=== PATIENT | male | born 1980 | race Caucasian/White ===

== ENCOUNTER 2025-06-21 06:28 | Day surgery (SDC) | payer BC, SELFPAY ==
[2025-06-17 11:29] VITALS: BMI 30.2
--- NOTE | 2025-06-20 07:00 | EKG_ITS ---
[facility] Test Date: 2025-06-20 Pat Name: NICOLLE REYNA Department: Room: - Gender: Male [employer] Counselor: EILEEN : 1980 Requested By: Seda Bernardo Order Number: [id number] Reading MD: Seda Bernardo Measurements Intervals [place] Rate: 60 P: 6 MA: 171 QRS: 23 QRSD: 92 T: 35 QT: 360 QTc: 361 Interpretive Statements SINUS RHYTHM EARLY REPOLARIZATION [ST ELEVATION WITH NORMALLY INFLECTED T WAVE] No previous ECG available for comparison /[id number]
[2025-06-20 10:26] LABS: Basophils # (Auto) 0.1 Thou/mm3 (0.0-0.2); Basophils % (Auto) 1 % (0-2.5); Eosinophils # (Auto) 0.2 Thou/mm3 (0.0-0.5); Eosinophils % (Auto) 2 % (0-10); Hematocrit 47.6 % (41.0-53.0); Hemoglobin 16.0 g/dL (13.5-16.0); Immature Granulocytes Auto 0.03 Thou/mm3 (0.00-0.00); Lymphocytes # (Auto) 2.4 Thou/mm3 (1.0-4.8); Lymphocytes % (Auto) 32 % (10-50); Mean Corpuscular HGB Conc 33.6 g/dl (31.0-37.0); Mean Corpuscular Hemoglobin 30.0 pg (25.0-35.0); Mean Corpuscular Volume 89 fL (80-100); Monocytes # (Auto) 0.6 Thou/mm3 (0.0-0.8); Monocytes % (Auto) 8 % (0-12); Neutrophils # (Auto) 4.2 Thou/mm3 (1.8-7.7); Neutrophils % (Auto) 57 % (37-80); Nucleated Red Blood Cell # 0.00 Thou/mm3 (0.00-0.00); Nucleated Red Blood Cell % 0 /100 WBC (0); Platelet Count 313 Thou/mm3 (140-440); RDW Standard Deviation 43.2 fL (35.1-43.9); Red Blood Count 5.34 Miln/mm3 (4.50-5.90); White Blood Count 7.3 Thou/mm3 (3.8-10.6)
[2025-06-20 10:37] LABS: Anion Gap 7 (7-16); BUN/Creatinine Ratio 11 Ratio (12-20); Blood Urea Nitrogen 12 mg/dL (9-23); Calcium 9.0 mg/dL (8.3-10.6); Carbon Dioxide 29.4 mMol/L (20.0-31.0); Chloride 105 mMol/L (98-107); Creatinine (Component) 1.1 mg/dL (0.6-1.3); Estimated Creatinine Clearance 97.4 mL/min (>60); Glucose 95 mg/dL (74-106); Osmolality,Calculated 280 (275-295); Potassium 4.7 mMol/L (3.4-5.1); Sodium 141 mMol/L (136-145); eGFR > 60 See Note
[2025-06-20 10:44] LABS: INR 0.9 (0.9-1.3); Partial Thromboplastin Time 24.6 Seconds (22.0-36.0); Prothrombin Time 9.8 Seconds (9.0-12.2)
[2025-06-20 10:46] LABS: COVID-19 Antigen (In-House) Negative (Negative)
[2025-06-21] VITALS (13 sets, daily range): BP systolic 99–152; BP diastolic 55–101; PULSE 68–150; RESP 12–18; TEMP 36.4–36.8; O2SAT 94–97
--- NOTE | 2025-06-21 08:08 | ESOP_ITS ---
Cardiac Cath Procedure Procedure Narrative Date of the procedure 06/21/2025 Indication for the procedure This is a 38-year-old gentleman with complaints of recurrent anterior chest pain Cardiolite scan was equivocal We continued medical management patient continues to complain of chest pain Therefore we decided to proceed with further evaluation with cardiac cath and coronary angiogram Title of the procedure 1.left heart catheterization 2.left coronary angiogram 3.right coronary angiogram 4.left ventriculogram 5.conscious sedation 6.radiographic interpretation supervision 7.ultrasound guidance for right radial access Procedure This was done in the cardiac lab under current electrocardiographic monitoring Intermittent blood pressure monitoring right radial access obtained using modified Seldinger technique and ultrasound guidance 6 [place] sheath was placed TIG 4 catheter was used for selective engagement of the left coronary artery TIG 4 catheter was used for selective images right coronary artery TIG 4 catheter used for left ventriculogram Hemodynamics Overall left ventricular systolic function appears normal Approximate ejection fraction 55% End-diastolic pressure was 18 mmHg There is no gradient across the aortic valve Coronary anatomy 1.left main coronary artery appears normal 2.left anterior descending artery does not seem to have any significant lesion 3.right coronary is a nondominant vessel no significant lesion noted 4.circumflex is a dominant vessel appears to show minor luminal irregularities 5.obtuse marginal does not seem to have any significant lesion Conclusion No significant coronary lesion Continue medical management
[2025-06-21] MEDS: ACETAMINOPHEN 325 MG TABLET 650 MG PO (11:19)
--- NOTE | 2025-06-21 11:31 | PC.NURSE ---
patient complaining of pain 10/10 on right wrist and right shoulder, personally talked to and he gave me a verbl order to give a 1X [place] 10 325 one hour later patient still has pain but this time it is on a scale of 6-7/10 wanted me to give another dose of norco 10mg 325 and to follow up with primary doctor once discharged in concerns of pain, i called pharmacy to ask if appropriate to give additional dose, pharmacy said they don't recommend that since he recently had a norco 10mg on standing orders in cathlab i gave 650mg tylenol X1 we will monitor for a while longer to see if pain goes down and depending on that he can go home
--- NOTE | 2025-06-21 11:48 | PC.NURSE ---
Patient c/o pain 5/10 to right upper arm and shoulder. Warm blanket placed on arm. Patient states its tolerable and alot better after getting the [place] earlier . Calld Dr. Bernardo to report pain. MD ordered more pain medication. Patient will prefer to go home and rest at home. Spoke with Dr. Bernardo and he is ok with patient going home and resting, he will follow up with patient tonight or tomorrow.
== END 2025-06-21 11:50 | disposition home or self-care (01) ==
PROVIDERS: PCP Nurse Practitioner Primary Care; Referring Provider Internal Medicine; Visit Provider Internal Medicine
PROC: (CPT 93458; principal; 2025-06-21 07:45)
DX: R07.89 Other chest pain (principal); R53.83 Other fatigue; Z82.49 Family history of ischemic heart disease and other diseases of the circulatory system; R94.31 Abnormal electrocardiogram [ECG] [EKG]; Z01.810 Encounter for preprocedural cardiovascular examination
CPT/HCPCS: 93458; 36415; 80048; 85025; 85610; 85730; 87811; 93005; 99152; 99153; A4649; C1769; C1887; C1894; J0168; J0461; J0583; J1643; J2250; J2312; J2371; J3010; J3490; Q9967; A9270; C1725; J2305